=== PATIENT | male | born 1965 | race African-American/Black ===

== ENCOUNTER 2023-05-24 09:08 | Day surgery (SDC) | payer BC, OTHER ==
[2023-05-20 13:06] VITALS: BMI 35.6
[2023-05-24] MEDS ORDERED: PROPOFOL 40 ML ONE (10:15)
[2023-05-24] MEDS ORDERED: Midazolam HCl 2 mg/2 ml Vial ONE (10:31)
[2023-05-24] MEDS ORDERED: PROPOFOL 20 ML ONE (10:53)
== END 2023-05-24 11:30 | disposition home or self-care (01) ==
LOC: CSHSDC 09:08
PROVIDERS: ATTEND Internal Medicine Gastroenterology
PROC: 0DBM8ZZ Excision of Descending Colon, Via Natural or Artificial Opening Endoscopic (ICD-10-PCS; principal; 2023-05-24)
DX: Z12.11 Encounter for screening for malignant neoplasm of colon (principal); K64.9 Unspecified hemorrhoids; N40.0 Benign prostatic hyperplasia without lower urinary tract symptoms; C61 Malignant neoplasm of prostate; E11.9 Type 2 diabetes mellitus without complications; F17.200 Nicotine dependence, unspecified, uncomplicated; E66.9 Obesity, unspecified; Z68.35 Body mass index [BMI] 35.0-35.9, adult; Z79.84 Long term (current) use of oral hypoglycemic drugs; Z98.890 Other specified postprocedural states; Z79.899 Other long term (current) drug therapy
CPT/HCPCS: 88305; J2250; J2704